=== PATIENT | male | born 1960 | race African-American/Black ===

== ENCOUNTER 2020-05-08 05:49 | Day surgery (SDC) | payer MEDICARE, MEDICAID ==
[~2020-05-08 05:49] MED LIST: CEFAZOLIN 1 GM/D5W RTU 1 GM/50 ML RTUPB IV ONE; CEFAZOLIN 1 GM/D5W RTU 1 GM/50 ML RTUPB IV PRN; LACTATED RINGERS 1000 ML IV PRN
[2020-05-08 06:32] LABS: APPEARANCE,URINE CLEAR; BILIRUBIN,URINE NEGATIVE (NEGATIVE); COLOR,URINE YELLOW; GLUCOSE, URINE >=500 mg/dL (NEGATIVE); KETONES,URINE TRACE mg/dL (NEGATIVE); LEUKOCYTE ESTERASE,URINE NEGATIVE (NEGATIVE); NITRITE,URINE NEGATIVE (NEGATIVE); PROTEIN,URINE NEGATIVE (NEGATIVE); URINE SPECIFIC GRAVITY 1.033; UROBILINOGEN,URINE NEGATIVE mg/dL (<2.0)
[2020-05-08 06:41] LABS: ABSOLUTE BASOPHILS # (AUTO) 0.1 10^3/uL (0.0-0.2); ABSOLUTE EOSINOPHILS # (AUTO) 0.2 10^3/uL (0.0-0.6); ABSOLUTE NEUT (AUTO) 3.8 10^3/uL (1.7-8.2); BASOPHILS % (AUTO) 0.9 % (0-2); EOSINOPHILS % (AUTO) 2.6 % (0-6); HEMATOCRIT 38.5 % (37.9-51.0); HEMOGLOBIN 13.4 g/dL (13.5-17.0); LYMPHOCYTES % (AUTO) 43.8 % (13-45); MEAN CORPUSCULAR HEMOGLOBIN 31.7 pg (27.0-33.4); MEAN CORPUSCULAR HGB CONC 34.7 g/dL (32.0-36.0); MEAN CORPUSCULAR VOLUME 91 fl (80-97); MONOCYTES % (AUTO) 11.3 % (3-13); PLATELET COUNT 241 10^3/uL (150-450); RED BLOOD COUNT 4.22 10^6/uL (4.35-5.55); RED CELL DISTRIBUTION WIDTH 14.4 % (11.5-14.0); SEGMENTED NEUTROPHILS % (AUTO) 41.4 % (42-78); TOTAL CELLS COUNTED % (AUTO) 100 %; WHITE BLOOD COUNT 9.2 10^3/uL (4.0-10.5)
[2020-05-08 06:48] LABS: PARTIAL THROMBOPLASTIN TIME 27.3 SEC (23.5-35.8); PROTHROMBIN TIME 12.4 SEC (11.4-15.4)
[2020-05-08] MEDS ORDERED: MIDAZOLAM 2 MG/2 ML INJ ONE (06:50)
[2020-05-08] MEDS ORDERED: ONDANSETRON HCL INJ/PF 4 MG/2 ML SDV ONE (06:50)
[2020-05-08] MEDS ORDERED: FENTANYL CITRATE INJ/PF 100 MCG/2 ML AMPUL ONE (06:50)
[2020-05-08] MEDS ORDERED: DEXAMETHASONE SOD PHOSPHATE INJ 4 MG/1 ML VIAL ONE (06:50)
[2020-05-08] MEDS ORDERED: DEXMEDETOMIDINE INJ 80 MCG/20 ML VIAL IV ONE (06:51)
[2020-05-08] MEDS ORDERED: KETAMINE HCL INJ 500 MG/10 ML VIAL ONE (06:51)
[2020-05-08] MEDS ORDERED: KETOROLAC TROMETHAMINE 60 MG/2 ML SDV ONE (06:51)
[2020-05-08] MEDS ORDERED: PROPOFOL INJ 200 MG/20 ML VIAL IV ONE ×2 (06:51→09:15)
[2020-05-08] MEDS ORDERED: LIDOCAINE 1% INJ-PF (10 MG/ML) 30 ML SDV ONE (07:08)
[2020-05-08] MEDS ORDERED: BUPIVACAINE HCL 0.25% /EPINEPHRINE INJ/PF 30 ML SDV ONE (07:08)
[2020-05-08] MEDS ORDERED: SODIUM BICARBONATE 4.2% INJ (2.5 MEQ/5 ML) VIAL ONE (07:08)
[2020-05-08] MEDS ORDERED: ALBUTEROL SULFATE 0.083% NEB 2.5 MG/3 ML AMPUL NEB ONE (07:22)
[2020-05-08] MEDS ORDERED: BACITRACIN INJ 50,000 UNIT VIAL ONE ×2 (08:23→08:38)
[2020-05-08] MEDS ORDERED: PROMETHAZINE HCL INJ 25 MG/1 ML VIAL IV PRN (08:41)
[2020-05-08] MEDS ORDERED: ONDANSETRON HCL INJ/PF 4 MG/2 ML SDV IV PRN (08:41)
[2020-05-08] MEDS ORDERED: FENTANYL CITRATE INJ/PF 100 MCG/2 ML AMPUL IV PRN (08:41)
--- NOTE | 2020-05-08 09:21 | RADIOLOGY REPORT (SQ) ---
EXAM DESCRIPTION: CHEST SINGLE VIEW IMAGES COMPLETED DATE/TIME: 05/08/2020 6:45 am REASON FOR STUDY: preop COMPARISON: None. EXAM PARAMETERS: NUMBER OF VIEWS: One view. TECHNIQUE: Single frontal radiographic view of the chest acquired. RADIATION DOSE: NA LIMITATIONS: Lordotic portable film, obese patient FINDINGS: LUNGS AND PLEURA: No opacities, masses or pneumothorax. No pleural effusion. MEDIASTINUM AND HILAR STRUCTURES: No masses. Contour normal. HEART AND VASCULAR STRUCTURES: Borderline cardiomegaly BONES: No acute findings. HARDWARE: None in the chest. OTHER: No other significant finding. IMPRESSION: No acute findings TECHNICAL DOCUMENTATION: JOB ID: [id number] 2010 [employer]- All Rights Reserved Reading location - IP/workstation name: [id number]
--- NOTE | 2020-05-08 10:08 | Operative Report ---
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 TIG WELDER: ZA TAPIA ANESTHESIA: LMAC TISSUE REMOVED OR ALTERED: None COMPLICATIONS: None PROCEDURE: Date of Surgery: [] Preoperative Diagnosis: Post Laminectomy Pain Syndrome Postoperative Diagnosis:Same Procedure: SCS Electrode Placement with Impulse Generator Surgeon: Hugo Dietz MD Take dictating operative note dictating operative report after obtaining i nformed consent advised the patient of the risk and benefits including serious neurological injury bleeding and infection counseling the patient regarding his use of blood thinners and confirming cessation he was taken to the operating room. He was placed comfortably in the prone position anesthesia was administered for MAC anesthesia monitors were applied. Foot was assessed verbally and visually patient was then prepped with chlorhexidine from the shoulders to the gluteal region in both flanks. With appropriate drying time he was then draped fluoroscopy was utilized after performing an appropriate timeout. Suitable entrance site to the T12 T11 interspace was identified skin chapman were made. Over the mid L2-L3 region skin wheals were made to the right and left of the midline small incisions were made through the skin was. Beginning on the left-hand side a 14-gauge Touhy needle 6 inch long was inserted and advanced under fluoroscopic guidance during into the epidural space at T11- T12 near the midline of [id number] to saline. No heme cerebrospinal fluid or paresthesias were elicited. Stem wave electrode was then advanced up to the top of T8 this procedure was repeated at the right side and the lead was advanced up to the top of T9 the stylets were removed from the electrodes and the intent was replaced without difficulty. The needles were then sequentially removed. Temp was made to place the anchor the right lead which but difficult the lead had to be removed Pantano was removed and the stylette was placed back in. Space was then entered using the same fashion with the Touhy needle was resistance to saline. The lead was advanced back up to the top of T9. The stylette was again removed and the antenna was placed. Deeper incision was made to facilitate placement of the anchor. It was then removed and the anchor was placed without difficulty into the fascial region. This was repeated on the side. Both anchors were deployed and secured the leads remained satisfactorily in position. Leads were then tunneled to a pocket that was created slightly distal approximately 2 inches from the needle insertion on the right. Tunneled to the pocket loop was placed and secured. The loop loop was then secured to the fascia was irrigated hemostasis was obtained with electrocautery as necessary. To needle insertion sites were closed with alicia and Dermabond. The pocket site was closed with 2 interrupted inverted vertical mattress sutures using 3-0 Polysorb followed by Dermabond. Telfa and Tegaderm were placed after the cement was cured. Was then taken to the PACU for further postoperative care and monitoring. End of dictation please see that I have a copy of this note
[2020-05-08] MEDS ORDERED: METOCLOPRAMIDE HCL INJ/PF 10 MG/2 ML SDV ONE (10:23)
[2020-05-08] MEDS ORDERED: PHENYLEPHRINE HCL INJ/PF 10 MG/1 ML SDV ONE (10:23)
[2020-05-08] MEDS ORDERED: GLYCOPYRROLATE 1 MG/5 ML VIAL ONE (10:23)
[2020-05-08] MEDS ORDERED: HYDROCODONE/ACETAMINOPHEN 5-325 MG TABLET ONE (10:44)
[2020-05-08 13:15] VITALS: BP 118/71
--- NOTE | 2020-05-08 14:08 | RADIOLOGY REPORT (SQ) ---
EXAM DESCRIPTION: NO CHG FLUORO; THORACOLUMBAR SPINE AP/LAT IMAGES COMPLETED DATE/TIME: 05/08/2020 1:42 pm REASON FOR STUDY: SPINAL STIMULATOR PLCMT ASSISTED WITH FLUORO IN OR COMPARISON: None. FLUOROSCOPY TIME: 13.1 minutes 27 Images saved to PACS LIMITATIONS: None. PROCEDURE: Neurostimulator electrode placement FINDINGS: Images from fluoro document the procedure. IMPRESSION: Neurostimulator electrode placement. Refer to operative note for further information. COMMENT: PQRS 6045F: Fluoroscopy time of the procedure is documented in the report. TECHNICAL DOCUMENTATION: JOB ID: [id number] 2010 [employer]- All Rights Reserved Reading location - IP/workstation name: [email or web address]
--- NOTE | 2020-05-08 14:08 | RADIOLOGY REPORT (SQ) ---
EXAM DESCRIPTION: NO CHG FLUORO; THORACOLUMBAR SPINE AP/LAT IMAGES COMPLETED DATE/TIME: 05/08/2020 1:42 pm REASON FOR STUDY: SPINAL STIMULATOR PLCMT ASSISTED WITH FLUORO IN OR COMPARISON: None. FLUOROSCOPY TIME: 13.1 minutes 27 Images saved to PACS LIMITATIONS: None. PROCEDURE: Neurostimulator electrode placement FINDINGS: Images from fluoro document the procedure. IMPRESSION: Neurostimulator electrode placement. Refer to operative note for further information. COMMENT: PQRS 6045F: Fluoroscopy time of the procedure is documented in the report. TECHNICAL DOCUMENTATION: JOB ID: [id number] 2010 [employer]- All Rights Reserved Reading location - IP/workstation name: [email or web address]
--- NOTE | 2020-05-08 14:19 | EKG REPORT ---
SEVERITY:- NORMAL ECG - SINUS RHYTHM : Confirmed by: Lakshmi Mendoza MD 08-May-2020 14:18:07
== END 2020-05-08 11:30 | disposition home or self-care (01) ==
LOC: OROUT 05:49
PROVIDERS: ATTEND Pain Medicine Interventional Pain Medicine
DX: M96.1 Postlaminectomy syndrome, not elsewhere classified (principal); G89.4 Chronic pain syndrome; Z79.899 Other long term (current) drug therapy; Z20.828 Contact with and (suspected) exposure to other viral communicable diseases; Z79.4 Long term (current) use of insulin; E11.9 Type 2 diabetes mellitus without complications; M54.16 Radiculopathy, lumbar region; M51.36 Other intervertebral disc degeneration, lumbar region; Z79.01 Long term (current) use of anticoagulants; J45.909 Unspecified asthma, uncomplicated; G47.33 Obstructive sleep apnea (adult) (pediatric); K58.9 Irritable bowel syndrome, unspecified; K21.9 Gastro-esophageal reflux disease without esophagitis; E66.9 Obesity, unspecified; E78.5 Hyperlipidemia, unspecified; I10 Essential (primary) hypertension; G40.909 Epilepsy, unspecified, not intractable, without status epilepticus
CPT/HCPCS: 36415; 82947; 85025; 85610; 85730; 81001; 71045; 72080; 93005; 93010; 63685; 63650; U0003; J2250; J3490 ×7; J0690; J1100; J1885; J2765; J2370; J2405; J2704; A9270 ×2; C9803; 1936; 87635; J3010; J7613